=== PATIENT | female | born 1955 | race American Indian/Alaskan Native ===

== ENCOUNTER 2022-03-11 16:12 | Emergency (ER) | payer MEDICAID | END 2022-03-11 18:00 | disposition home or self-care (01) | LOC: JP.ED 16:12 | DX: L30.9 Dermatitis, unspecified (principal); J44.9 Chronic obstructive pulmonary disease, unspecified; I10 Essential (primary) hypertension; E11.9 Type 2 diabetes mellitus without complications; Z79.899 Other long term (current) drug therapy; Z79.82 Long term (current) use of aspirin; Z87.891 Personal history of nicotine dependence | CPT/HCPCS: 81001; 87086; 87088; 87186; 99283 ==